=== PATIENT | male | born 1990 | race Caucasian/White ===

== ENCOUNTER 2018-12-02 10:35 | Emergency (ER) | payer OTHER ==
[~2018-12-02] VITALS: Ht 170.2 cm; Wt 78.9 kg
[~2018-12-02 10:35] MED LIST: CLEOCIN HCL300 MG PO; COLACE100 MG PO; KETOROLAC TROME10 MG PO; NORCO 5-325 TA1 EACH PO
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
[2018-12-02] MEDS ORDERED: ZOFRAN4 MG SL (13:43)
--- NOTE | 2018-12-02 15:33 | EKG ---
[facility] [address] [facility] [place] [id number] Signed Normal sinus rhythm Rightward axis Cannot rule out Inferior infarct , age undetermined Abnormal ECG No previous ECGs available Confirmed by AMBER ROMERO MD ([id number]) on 12/02/2018 3:32:43 PM Electronically Signed By: AMBER ROMERO MD 12/02/18 1533 PATIENT NAME: KRISTAL SCHULTE Electrocardiogram DATE OF : 89 PHYSICIAN: AMBER ROMERO MD REPORT #: [id number] REPORT IS CONFIDENTIAL AND NOT TO BE RELEASED WITHOUT AUTHORIZATION
== END 2018-12-02 14:11 | disposition home or self-care (01) ==
LOC: ED 10:35
DX: R55 Syncope and collapse (principal); S01.111A Laceration without foreign body of right eyelid and periocular area, initial encounter; E86.0 Dehydration; Z88.0 Allergy status to penicillin; W18.30XA Fall on same level, unspecified, initial encounter
CPT/HCPCS: 12011; 70450; 80053; 85025; 93005; 93010; 99284-25; J2405; J7030

== ENCOUNTER 2019-06-28 14:40 | Emergency (ER) | payer OTHER ==
[~2019-06-28] VITALS: Ht 170.2 cm; Wt 78.9 kg
[~2019-06-28 14:40] MED LIST changes: +ZOFRAN4 MG SL
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
== END 2019-06-28 16:40 | disposition home or self-care (01) ==
LOC: ED 14:40
DX: S16.1XXA Strain of muscle, fascia and tendon at neck level, initial encounter (principal); V49.9XXA Car occupant (driver) (passenger) injured in unspecified traffic accident, initial encounter; Z88.0 Allergy status to penicillin
CPT/HCPCS: 72125; 99284-25; A9270